=== PATIENT | female | born 1980 | race Caucasian/White ===

== ENCOUNTER 2017-05-26 10:43 | Emergency (ER) | payer MEDICAID, OTHER ==
[~2017-05-26] VITALS: Ht 157.5 cm; Wt 100.0 kg
[~2017-05-26 10:43] MED LIST: CALC600T PO; FERR240T9 PO; PERCOCET PO; PRENAT PO
[2017-05-26 10:46] VITALS: Ht 157.5 cm; Wt 100.0 kg
[2017-05-26] MEDS ORDERED: ONDANSETRON 4 MG INJ IV STA (11:25)
[2017-05-26] MEDS ORDERED: morphine 4 MG/ML VIAL IV STA (11:25)
[2017-05-26] MEDS ORDERED: KETOROLAC 30 MG INJ IV STA (11:25)
[2017-05-26] MEDS ORDERED: SOD CHLORIDE 0.9% 1,000 ML IV STA (11:25)
[2017-05-26 12:08] LABS: ADD UMIC NO; UR ASCORBIC ACID NEGATIVE (NEGATIVE); UR BACTERIA FEW /HPF (NONE SEEN); UR BILIRUBIN (Dip) NEGATIVE (NEGATIVE); UR BLOOD (Dip) NEGATIVE (NEGATIVE); UR CLARITY SLIGHTLY CLOUDY (CLEAR); UR COLOR YELLOW (YELLOW); UR GLUCOSE (Dip) NEGATIVE (NEGATIVE); UR KETONES (Dip) NEGATIVE (NEGATIVE); UR LEUKOCYTE ESTERASE (Dip) NEGATIVE Leu/ul (NEGATIVE); UR NITRITE (Dip) NEGATIVE (NEGATIVE); UR RBC 1 /HPF (0-5); UR SPECIFIC GRAVITY (Dip) 1.023 (1.003-1.030); UR SQUAMOUS EPITHELIAL CELL FEW /HPF (FEW); UR TOTAL PROTEIN (Dip) NEGATIVE (NEGATIVE); UR UROBILINOGEN (Dip) NEGATIVE (NEGATIVE)
[2017-05-26 12:14] LABS: BASOPHIL # 0.1 10^3/ul (0.0-0.1); BASOPHILS % 0.4 % (0.0-2.0); EOSINOPHILS # 0.3 10^3/ul (0.0-0.5); EOSINOPHILS % 2.1 % (0.0-7.0); HEMATOCRIT 40.2 % (37.0-47.0); HEMOGLOBIN 13.6 g/dl (12.0-16.0); LYMPHOCYTES # 2.3 10^3/ul (0.8-2.9); LYMPHOCYTES % 18.6 % (15.0-51.0); MEAN CORPUSCULAR HGB CONC 33.8 g/dl (32.0-37.0); MEAN CORPUSCULAR VOLUME 94.6 fl (82.0-101.0); MEAN PLATELET VOLUME 10.9 fl (7.4-10.4); MONOCYTE # 0.5 10^3/ul (0.3-0.9); MONOCYTES % 4.2 % (0.0-11.0); NEUTROPHIL # 9.1 10^3/ul (1.6-7.5); NEUTROPHILS % 74.3 % (39.0-77.0); PLATELET COUNT 156 10^3/UL (140-415); RED BLOOD COUNT 4.25 10^6/ul (4.20-5.40); RED CELL DISTRIBUTION WIDTH 13.5 % (11.5-14.5); WHITE BLOOD COUNT 12.3 10^3/ul (4.8-10.8)
[2017-05-26 12:31] LABS: INR 0.96; PROTIME 12.8 Sec (12.2-14.2)
[2017-05-26 12:37] LABS: ANION GAP 14 (8-16); BLOOD UREA NITROGEN 17 mg/dl (7-20); CARBON DIOXIDE 22 mmol/L (21-31); CHLORIDE 108 mmol/L (97-110); GLUCOSE 87 mg/dl (70-220); POTASSIUM 4.4 mmol/L (3.5-5.1); SODIUM 140 mmol/L (135-144)
--- NOTE | 2017-05-26 12:45 | RADRPT ---
PROCEDURE: CT Abdomen and Pelvis without contrast CLINICAL INDICATION: Abdominal pain radiating to back x2 weeks TECHNIQUE: Transaxial images were obtained through the abdomen and pelvis on a multi-slice scanner without the intravenous contrast administration. No oral contrast had previously been given. Sagit asif and coronal re-formations were subsequently reconstructed. One or more of the following dose reduction techniques were used: - Automated exposure control. - Adjustment of the mA and/or kV according to patient size. - Use of iterative reconstruction technique. Radiation dose: CTDIvol = 11.23 mGy; DLP = 633.73 mGy-cm. COMPARISON: No prior studies are available for comparison. FINDINGS: Lung bases: The visualized lung bases appear unremarkable. Liver: The liver is upper normal in size with no focal lesion identified. Gallbladder: The wall is not thickened. No radiopaque stones are identified. Bile ducts: The intra and extrahepatic bile ducts are normal in caliber. Pancreas: Appears normal with no mass or inflammation evident. Spleen: Normal in size with no focal lesion. A small accessory spleen is positioned posteriorly and even smaller accessory spleen is seen posterior to the tail of the pancreas anterior to the spleen. Adrenals: Normal with no mass identified. Kidneys, ureters and bladder: The kidneys are normal in size and there is no mass, pathological calc ification, or hydronephrosis evident. There is no perinephric stranding. The ureters are normal in c aliber and no ureteroliths are identified. The bladder appears unremarkable. Reproductive organs: The uterus is mildly retroflexed. No adnexal mass is evident. Stomach and bowel: The stomach and bowel appear unremarkable without evidence of obstruction or infl ammation. Substantial stool is seen in the right colon. At least 1 diverticulum is seen within the d istal descending colon. Appendix: A normal vermiform appendix is evident. Peritoneum: No free intraperitoneal fluid or air is identified. There is a small fat containing umbi lical hernia. Aorta: Normal in caliber with no aneurysmal dilatation. IVC: Unremarkable. Lymph nodes: A few small shotty retroperitoneal nodes are evident. Osseous structures: The osseous elements appear intact. IMPRESSION: 1. At least 1 colonic diverticulum is evident in the distal descending colon and there is substanti al stool in the right colon, but there is no evidence of bowel obstruction or inflammation. A normal vermiform appendix is evident. 2. No evidence of urinary outflow obstruction or ureterolithiasis within normal appearing bladder. 3. There is no free intraperitoneal fluid or air. 4. There is a small fat containing umbilical hernia. 5. Otherwise, unremarkable non-enhanced CT scan of the abdomen and pelvis. Physician Mariluz Date Time Electronically viewed and signed by Sandy Hylton Physician on 05/26/2017 12:45 RH/
[2017-05-26 12:50] LABS: TROPONIN-I < 0.012 ng/ml (0.00-0.12)
--- NOTE | 2017-05-26 13:01 | RADRPT ---
PROCEDURE: XR Chest AP portable CLINICAL INDICATION: Chest pain TECHNIQUE: An AP portable radiograph of the chest was submitted. COMPARISON: None. FINDINGS: Support Hardware: None Cardiovascular: The heart is normal in size. The pulmonary vasculature is equivocal for pulmonary ve nous obstruction. Lung Aden: The lung aden appear clear with no nodule, alveolar infiltrate, or interstitial promi nence evident. Pleural Spaces: No pneumothorax or pleural effusion is identified. Osseous Structures: The osseous elements appear intact.. Soft Tissues: The soft tissues appear generous. IMPRESSION: 1. Normal sized heart with the pulmonary vasculature equivocal for pulmonary venous obstruction. 2. Otherwise, unremarkable portable chest. Physician Mariluz Date Time Electronically viewed and signed by Physician Mariluz on 05/26/2017 13:01 /
[2017-05-26 13:20] LABS: PARTIAL THROMBOPLASTIN TIME 25.7 Sec (25.0-35.0)
[2017-05-26 13:41] LABS: ALANINE AMINOTRANSFERASE 28 IU/L (13-69); ALBUMIN 3.8 g/dl (3.3-4.9); ALBUMIN/GLOBULIN RATIO 1.05; ALKALINE PHOSPHATASE 53 IU/L (42-121); ASPARTATE AMINO TRANSFERASE 26 IU/L (15-46); BILIRUBIN,INDIRECT 0.2 mg/dl (0-1.1); BILIRUBIN,TOTAL 0.2 mg/dl (0.2-1.3); CALCIUM 9.3 mg/dl (8.4-10.2); CREATININE 0.74 mg/dl (0.44-1.00); TOTAL PROTEIN 7.4 g/dl (6.1-8.1)
[2017-05-26] MEDS ORDERED: HYDR-906 PO (13:47)
[2017-05-26] MEDS ORDERED: NAPR-260 PO (13:47)
[2017-05-26 14:00] VITALS: BP 134/84; PULSE 92; RESP 17; TEMP 98.1
--- NOTE | 2017-05-26 18:51 | ERD ---
ER Documentation Chief Complaint Chief Complaint AP X 2 WEEKS HPI Patient is a 37-year-old female presented to the emergency department with complaints of left lower quadrant pain worsening, constant, radiation to left upper quadrant, associated with nausea, for the past 2 weeks. The patient denies vomiting, diarrhea, fevers, vaginal discharge, pelvic pain, urinary symptoms, or other symptoms at this time. Additionally, the patient did mention some vague left sided chest pain and left arm pain. She reports her left arm is feeling heavy. ROS All systems reviewed and are negative except as per history of present illness. Medications Home Meds Active Scripts Naproxen* (Naprosyn*) 500 Mg Tablet, 500 MG PO BID Y for PAIN AND/OR INFLAMMATION, #20 TAB Prov:BRITNI LOPEZ PA-C 05/26/17 Hydrocodone/Acetaminophen ([place] 5-325 Tablet) 1 Each Tablet, 1 TAB PO Q6H Y for PAIN, #7 TAB Prov:BRITNI LOPEZ PA-C 05/26/17 Oxycodone Hcl/Acetaminophen (Percocet) 1 Tab Tab, 2 TAB PO Q4H Y for PAIN LEVEL 6-10, #30 TAB 0 Refills Prov:JENS MCRAE MD 03/25/15 Reported Medications Calcium Carbonate (Oyster Shell Calcium) 600 Mg Tablet, 600 MG PO DAILY 02/09/15 Ferrous Gluconate (Iron) 1 Tab Tablet, 1 TAB PO DAILY 02/09/15 Multivit/Min/Fol Ac/Iron/Pren* ( S*) 1 Tab Tab, 1 TAB PO DAILY, TAB 02/03/15 Allergies Allergies: Coded Allergies: No Known Allergy (Verified , 03/23/15) PMhx/Soc History of Surgery: No Anesthesia Reaction: No Hx Neurological Disorder: No Hx Respiratory Disorders: No Hx Cardiac Disorders: No Hx Psychiatric Problems: No Hx Miscellaneous Medical Probl: No Hx Alcohol Use: No Hx Substance Use: No Hx Tobacco Use: No Physical Exam Vitals Vital Signs Date Time Temp Pulse Resp B/P Pulse Ox O2 Delivery O2 Flow Rate FiO2 05/26/17 14:00 98.1 92 17 134/84 100 Room Air 05/26/17 10:46 98.1 90 18 123/78 99 Physical Exam Const: Nontoxic, well-appearing female in no acute distress. Head: Atraumatic Eyes: Normal Conjunctiva ENT: Normal External Ears, Nose and Mouth. Neck: Full range of motion..~ No meningismus. Resp: Clear to auscultation bilaterally Cardio: Regular rate and rhythm, no murmurs Abd: Soft, mild tenderness palpation of the left upper quadrant and left lower quadrant, mild rebound tenderness, no McBurney's point tenderness palpation, non distended. Normal bowel sounds Skin: No petechiae or rashes Back: No midline units. There is left flank tenderness to palpation. Ext: No cyanosis, or edema Neur: Awake and alert Psych: Normal Mood and Affect Result Diagram: 05/26/17 1200 05/26/17 1200 Results 24 hrs Laboratory Tests Test 05/26/17 11:37 05/26/17 12:00 Urine Color YELLOW Urine Clarity SLIGHTLY CLOUDY Urine pH 6.0 Urine Specific [place] 1.023 Urine Ketones NEGATIVEmg/dL Urine Nitrite NEGATIVEmg/dL Urine Bilirubin NEGATIVEmg/dL Urine Urobilinogen NEGATIVEmg/dL Urine Leukocyte Esterase NEGATIVELeu/ul Urine Microscopic RBC 1/HPF Urine Microscopic WBC 2/HPF Urine Squamous Epithelial Cells FEW/HPF Urine Bacteria FEW/HPF Urine Hemoglobin NEGATIVEmg/dL Urine Glucose NEGATIVEmg/dL Urine Total Protein NEGATIVEmg/dl White Blood Count 12.310^3/ul Red Blood Count 4.2510^6/ul Hemoglobin 13.6g/dl Hematocrit 40.2% Mean Corpuscular Volume 94.6fl Mean Corpuscular Hemoglobin 32.0pg Mean Corpuscular Hemoglobin Concent 33.8g/dl Red Cell Distribution Width 13.5% Platelet Count 41090^3/UL Mean Platelet Volume 10.9fl Neutrophils % 74.3% Lymphocytes % 18.6% Monocytes % 4.2% Eosinophils % 2.1% Basophils % 0.4% Nucleated Red Blood Cells % 0.0/100WBC Neutrophils # 9.110^3/ul Lymphocytes # 2.310^3/ul Monocytes # 0.510^3/ul Eosinophils # 0.310^3/ul Basophils # 0.110^3/ul Nucleated Red Blood Cells # 0.010^3/ul Prothrombin Time 12.8Sec Prothrombin Time Ratio 1.0 INR International Normalized Ratio 0.96 Activated Partial Thromboplast Time 25.7Sec Sodium Level 140mmol/L Potassium Level 4.4mmol/L Chloride Level 108mmol/L Carbon Dioxide Level 22mmol/L Anion Gap 14 Blood Urea Nitrogen 17mg/dl Creatinine 0.74mg/dl Glucose Level 87mg/dl Calcium Level 9.3mg/dl Total Bilirubin 0.2mg/dl Direct Bilirubin 0.00mg/dl Indirect Bilirubin 0.2mg/dl Aspartate Amino Transf (AST/SGOT) 26IU/L Alanine Aminotransferase (ALT/SGPT) 28IU/L Alkaline Phosphatase 53IU/L Troponin I < 0.012ng/ml Total Protein 7.4g/dl Albumin 3.8g/dl Globulin 3.60g/dl Albumin/Globulin Ratio 1.05 Lipase 120U/L Current Medications Medications (Trade) Dose Ordered Sig/Parrish Route PRN Reason Start Time Stop Time Status Last Admin Dose Admin Sodium Chloride (NS) 1,000 ml @ 1,000 mls/hr Q1H STAT IV 05/26/17 11:25 05/26/17 12:24 DC 05/26/17 11:56 Morphine Sulfate (morphine) 4 mg ONCE STAT IV 05/26/17 11:25 05/26/17 11:27 DC 05/26/17 11:56 Ondansetron HCl (Zofran Inj) 4 mg ONCE STAT IV 05/26/17 11:25 05/26/17 11:27 DC 05/26/17 11:56 Ketorolac Tromethamine (Toradol) 30 mg ONCE STAT IV 05/26/17 11:25 05/26/17 11:27 DC 05/26/17 11:56 Procedures/MDM 37-year-old female presents to the emergency department with complaints of left upper quadrant pain, left lower quadrant pain, left flank pain, chest pain, and left arm pain. Physical examination does show some left lower quadrant and left upper quadrant tenderness to palpation. She was placed on a stretcher in IV line established. She was given IV morphine, Zofran, Toradol, fluids. She is feeling improved on reevaluation. Upon review of laboratory results, the patient had mild leukocytosis at 12.3, no evidence of anemia. Chemistry panel was within normal limits. Troponin was within normal limits. Urinalysis is not concerning for infection or proteinuria. Abdomen and pelvis CT without contrast showed 1 colonic diverticulum in the distal descending colon but no evidence of bowel obstruction or inflammation. A normal vermiform appendix is evident. Chest x-ray was obtained because the patient was complaining of chest pain. There is a normal-sized heart with the pulmonary vasculature equivocal for pulmonary venous obstruction, otherwise unremarkable portable chest. This may be followed up by her primary care physician and referral to specialist if indicated. Attending physician, Dr. Franck Ragsdale also reviewed the chest x- ray and was in agreement that there is no significant acute abnormalities. After workup in the department there was no significant finding which would explain the patient's left upper and left lower quadrant pain. She was feeling better after treatment. She was stable for discharge with prescriptions. She agreed with the discharge plan a diagnosis. I shared my medical decision making with the patient and she was in agreement. She is to return immediately for any new or worsening symptoms she is to follow-up with her primary care physician in the next 1-2 days. EKG: Reviewed with attending physician, Dr. Kelly Roldan Rate/Rhythm: Normal sinus rhythm with a rate of 95 bpm. QRS, ST, T-waves: No changes consistent w/ acute ischemia Impression: No evidence of ischemia or arrhythmia PROCEDURE: CT Abdomen and Pelvis without contrast CLINICAL INDICATION: Abdominal pain radiating to back x2 weeks TECHNIQUE: Transaxial images were obtained through the abdomen and pelvis on a multi-slice scanner without the intravenous contrast administration. No oral contrast had previously been given. Sagittal and coronal re-formations were subsequently reconstructed. One or more of the following dose reduction techniques were used: - Automated exposure control. - Adjustment of the mA and/or kV according to patient size. - Use of iterative reconstruction technique. Radiation dose: CTDIvol = 11.23 mGy; DLP = 633.73 mGy-cm. COMPARISON: No prior studies are available for comparison. FINDINGS: Lung bases: The visualized lung bases appear unremarkable. Liver: The liver is upper normal in size with no focal lesion identified. Gallbladder: The wall is not thickened. No radiopaque stones are identified. Bile ducts: The intra and extrahepatic bile ducts are normal in caliber. Pancreas: Appears normal with no mass or inflammation evident. Spleen: Normal in size with no focal lesion. A small accessory spleen is positioned posteriorly and even smaller accessory spleen is seen posterior to the tail of the pancreas anterior to the spleen. Adrenals: Normal with no mass identified. Kidneys, ureters and bladder: The kidneys are normal in size and there is no mass, pathological calcification, or hydronephrosis evident. There is no perinephric stranding. The ureters are normal in caliber and no ureteroliths are identified. The bladder appears unremarkable. Reproductive organs: The uterus is mildly retroflexed. No adnexal mass is evident. Stomach and bowel: The stomach and bowel appear unremarkable without evidence of obstruction or inflammation. Substantial stool is seen in the right colon. At least 1 diverticulum is seen within the distal descending colon. Appendix: A normal vermiform appendix is evident. Peritoneum: No free intraperitoneal fluid or air is identified. There is a small fat containing umbilical hernia. Aorta: Normal in caliber with no aneurysmal dilatation. IVC: Unremarkable. Lymph nodes: A few small shotty retroperitoneal nodes are evident. Osseous structures: The osseous elements appear intact. IMPRESSION: 1. At least 1 colonic diverticulum is evident in the distal descending colon and there is substantial stool in the right colon, but there is no evidence of bowel obstruction or inflammation. A normal vermiform appendix is evident. 2. No evidence of urinary outflow obstruction or ureterolithiasis within normal appearing bladder. 3. There is no free intraperitoneal fluid or air. 4. There is a small fat containing umbilical hernia. 5. Otherwise, unremarkable non-enhanced CT scan of the abdomen and pelvis. Physician Mariluz Date Time Electronically viewed and signed by Physician Mariluz on 05/26/2017 12:45 PROCEDURE: XR Chest AP portable CLINICAL INDICATION: Chest pain TECHNIQUE: An AP portable radiograph of the chest was submitted. COMPARISON: None. FINDINGS: Support Hardware: None Cardiovascular: The heart is normal in size. The pulmonary vasculature is equivocal for pulmonary venous obstruction. Lung Curtis: The lung curtis appear clear with no nodule, alveolar infiltrate, or interstitial prominence evident. Pleural Spaces: No pneumothorax or pleural effusion is identified. Osseous Structures: The osseous elements appear intact.. Soft Tissues: The soft tissues appear generous. IMPRESSION: 1. Normal sized heart with the pulmonary vasculature equivocal for pulmonary venous obstruction. 2. Otherwise, unremarkable portable chest. Physician Mariluz Date Time Electronically viewed and signed by Physician Mariluz on 05/26/2017 13:01 Departure Diagnosis: Primary Impression: Abdominal pain Abdominal location: generalized Qualified Code: R10.84 - Generalized abdominal pain Condition: Fair Patient Instructions: Abdominal Pain Referrals: MIREYA LAZARO MD (PCP) Additional Instructions: Follow up with your PCP within the next 1-3 days for a repeat evaluation. If you require a referral to a specialist, your Primary Care Provider may be able to provide this for you. In most patient cases, a referral is not required. If you have further questions regarding this matter, please ask your Primary Care Provider. Return the the emergency department immediately if symptoms worsen or change. If you have any questions regarding medications, ask your pharmacist or us before you leave. If any adverse reactions, occur while taking your medications, discontinue the treatment and return to the emergency department immediately. If any new or worsening symptoms, uncontrolled fevers, or other unexplained symptoms occur, return to the emergency department immediately. Take your medications as directed, and complete the entire course of treatment. BRITNI LOPEZ PA-C May 26, 2017 18:50
== END 2017-05-26 14:02 | disposition home or self-care (01) ==
LOC: FTE 10:43
DX: R10.84 Generalized abdominal pain (principal)
CPT/HCPCS: 36415; 71010; 74176; 80053; 81001; 83690; 84484; 85025; 85610; 85730; 93005; 96374; 96375; J1885; J2270; J2405; J7030; Z7502; 81003

== ENCOUNTER 2017-05-30 15:04 | Emergency (ER) | payer MEDICAID ==
[~2017-05-30] VITALS: Ht 149.9 cm; Wt 72.0 kg
[~2017-05-30 15:04] MED LIST changes: +HYDR-906 PO; +NAPR-260 PO
[2017-05-30 15:09] VITALS: Ht 149.9 cm; Wt 72.0 kg
--- NOTE | 2017-05-30 16:54 | ERD ---
ER Documentation Chief Complaint Chief Complaint abdominal pain x 5 days, sent by pmd r/o appendicitis HPI this 37 year old femal is returning to ED for evaluation of ABD, generalized ABD pain described as shooting sharp and crampy, abd mcfp, pt reports SOB , pt denies N/V D + constipation . seen here 4 days ago for the same complaint. pt was seen [facility] , MD refered her to ED for evaluation ROS All systems reviewed and are negative except as per history of present illness. Medications Home Meds Active Scripts Naproxen* (Naprosyn*) 500 Mg Tablet, 500 MG PO BID Y for PAIN AND/OR INFLAMMATION, #20 TAB Prov:BRITNI LOPEZ PA-C 05/26/17 Hydrocodone/Acetaminophen (Rye 5-325 Tablet) 1 Each Tablet, 1 TAB PO Q6H Y for PAIN, #7 TAB Prov:BRITNI LOPEZ PA-C 05/26/17 Oxycodone Hcl/Acetaminophen (Percocet) 1 Tab Tab, 2 TAB PO Q4H Y for PAIN LEVEL 6-10, #30 TAB 0 Refills Prov:JENS MCRAE MD 03/25/15 Reported Medications Calcium Carbonate (Oyster Shell Calcium) 600 Mg Tablet, 600 MG PO DAILY 02/09/15 Ferrous Gluconate (Iron) 1 Tab Tablet, 1 TAB PO DAILY 02/09/15 Multivit/Min/Fol Ac/Iron/Pren* ( S*) 1 Tab Tab, 1 TAB PO DAILY, TAB 02/03/15 Allergies Allergies: Coded Allergies: No Known Allergy (Verified , 03/23/15) PMhx/Soc History of Surgery: No Anesthesia Reaction: No Hx Neurological Disorder: No Hx Respiratory Disorders: No Hx Cardiac Disorders: No Hx Psychiatric Problems: No Hx Miscellaneous Medical Probl: No Hx Alcohol Use: No Hx Substance Use: No Hx Tobacco Use: No Physical Exam Vitals Vital Signs Date Time Temp Pulse Resp B/P Pulse Ox O2 Delivery O2 Flow Rate FiO2 05/30/17 15:09 98.7 100 18 155/84 99 Physical Exam Const: [] Head: Atraumatic Eyes: Normal Conjunctiva ENT: Normal External Ears, Nose and Mouth. Neck: Full range of motion..~ No meningismus. Resp: Clear to auscultation bilaterally Cardio: Regular rate and rhythm, no murmurs Abd: Soft, non tender, non distended. Normal bowel sounds Skin: No petechiae or rashes Back: No midline or flank tenderness Ext: No cyanosis, or edema Neur: Awake and alert Psych: Normal Mood and Affect Result Diagram: 05/30/17 1735 05/30/17 1735 Results 24 hrs Laboratory Tests Test 05/30/17 17:10 05/30/17 17:35 Urine Color YELLOW Urine Clarity SLIGHTLY CLOUDY Urine pH 5.0 Urine Specific Bernie 1.029 Urine Ketones TRACEmg/dL Urine Nitrite POSITIVEmg/dL Urine Bilirubin NEGATIVEmg/dL Urine Urobilinogen NEGATIVEmg/dL Urine Leukocyte Esterase NEGATIVELeu/ul Urine Microscopic RBC 1/HPF Urine Microscopic WBC 5/HPF Urine Squamous Epithelial Cells FEW/HPF Urine Bacteria FEW/HPF Urine Mucus FEW/HPF Urine Hemoglobin NEGATIVEmg/dL Urine Glucose NEGATIVEmg/dL Urine Total Protein NEGATIVEmg/dl White Blood Count 11.910^3/ul Red Blood Count 4.3010^6/ul Hemoglobin 13.7g/dl Hematocrit 40.0% Mean Corpuscular Volume 93.0fl Mean Corpuscular Hemoglobin 31.9pg Mean Corpuscular Hemoglobin Concent 34.3g/dl Red Cell Distribution Width 13.1% Platelet Count 09640^3/UL Mean Platelet Volume 11.6fl Neutrophils % 67.6% Lymphocytes % 23.9% Monocytes % 5.4% Eosinophils % 2.5% Basophils % 0.3% Nucleated Red Blood Cells % 0.0/100WBC Neutrophils # 8.110^3/ul Lymphocytes # 2.810^3/ul Monocytes # 0.610^3/ul Eosinophils # 0.310^3/ul Basophils # 0.010^3/ul Nucleated Red Blood Cells # 0.010^3/ul Sodium Level 142mmol/L Potassium Level 4.1mmol/L Chloride Level 104mmol/L Carbon Dioxide Level 26mmol/L Anion Gap 16 Blood Urea Nitrogen 20mg/dl Creatinine 0.85mg/dl Glucose Level 64mg/dl Calcium Level 9.6mg/dl Total Bilirubin 0.2mg/dl Direct Bilirubin 0.00mg/dl Indirect Bilirubin 0.2mg/dl Aspartate Amino Transf (AST/SGOT) 18IU/L Alanine Aminotransferase (ALT/SGPT) 24IU/L Alkaline Phosphatase 60IU/L Total Protein 7.8g/dl Albumin 4.7g/dl Globulin 3.10g/dl Albumin/Globulin Ratio 1.51 Lipase 88U/L Current Medications Medications (Trade) Dose Ordered Sig/Parrish Route PRN Reason Start Time Stop Time Status Last Admin Dose Admin Sodium Chloride (NS) 1,000 ml @ 1,000 mls/hr Q1H STAT IV 05/30/17 16:59 05/30/17 17:58 DC 05/30/17 17:36 Famotidine (Pepcid Iv) 20 mg ONCE STAT IV 05/30/17 16:59 05/30/17 17:02 DC 05/30/17 17:36 Ketorolac Tromethamine (Toradol) 15 mg ONCE STAT IV 05/30/17 16:59 05/30/17 17:02 DC 05/30/17 17:36 Acetaminophen/ Hydrocodone Bitart (Rye (5/325)) 1 tab ONCE ONCE PO 05/30/17 19:30 05/30/17 19:31 DC 05/30/17 19:12 Interpretation text CBC shows no evidence of hemorrhage WBCs slightly elevated at 11.9 Chemistry shows no evidence of significant electrolyte abnormalities or renal insufficiency Liver function tests shows no evidence of acute biliary or hepatic dysfunction Lipase shows no evidence of acute pancreatitis BNP shows no evidence of acute congestive heart failure, and or volume overload. Urinalysis positive for nitrates suggestive of infection Chart review PROCEDURE: CT Abdomen and Pelvis without contrast from 05/26/17 CLINICAL INDICATION: Abdominal pain radiating to back x2 weeks TECHNIQUE: Transaxial images were obtained through the abdomen and pelvis on a multi-slice scanner without the intravenous contrast administration. No oral contrast had previously been given. Sagittal and coronal re-formations were subsequently reconstructed. One or more of the following dose reduction techniques were used: - Automated exposure control. - Adjustment of the mA and/or kV according to patient size. - Use of iterative reconstruction technique. Radiation dose: CTDIvol = 11.23 mGy; DLP = 633.73 mGy-cm. COMPARISON: No prior studies are available for comparison. FINDINGS: Lung bases: The visualized lung bases appear unremarkable. Liver: The liver is upper normal in size with no focal lesion identified. Gallbladder: The wall is not thickened. No radiopaque stones are identified. Bile ducts: The intra and extrahepatic bile ducts are normal in caliber. Pancreas: Appears normal with no mass or inflammation evident. Spleen: Normal in size with no focal lesion. A small accessory spleen is positioned posteriorly and even smaller accessory spleen is seen posterior to the tail of the pancreas anterior to the spleen. Adrenals: Normal with no mass identified. Kidneys, ureters and bladder: The kidneys are normal in size and there is no mass, pathological calcification, or hydronephrosis evident. There is no perinephric stranding. The ureters are normal in caliber and no ureteroliths are identified. The bladder appears unremarkable. Reproductive organs: The uterus is mildly retroflexed. No adnexal mass is evident. Stomach and bowel: The stomach and bowel appear unremarkable without evidence of obstruction or inflammation. Substantial stool is seen in the right colon. At least 1 diverticulum is seen within the distal descending colon. Appendix: A normal vermiform appendix is evident. Peritoneum: No free intraperitoneal fluid or air is identified. There is a small fat containing umbilical hernia. Aorta: Normal in caliber with no aneurysmal dilatation. IVC: Unremarkable. Lymph nodes: A few small shotty retroperitoneal nodes are evident. Osseous structures: The osseous elements appear intact. IMPRESSION: 1. At least 1 colonic diverticulum is evident in the distal descending colon and there is substantial stool in the right colon, but there is no evidence of bowel obstruction or inflammation. A normal vermiform appendix is evident. 2. No evidence of urinary outflow obstruction or ureterolithiasis within normal appearing bladder. 3. There is no free intraperitoneal fluid or air. 4. There is a small fat containing umbilical hernia. 5. Otherwise, unremarkable non-enhanced CT scan of the abdomen and pelvis. Procedures/MDM PROCEDURE: US Pelvis. CLINICAL INDICATION: Pelvic pain TECHNIQUE: Multiple sonographic images of the pelvis were obtained utilizing a transabdominal and endovaginal technique. The images were reviewed on a PACS workstation. COMPARISON: None available FINDINGS: Uterus: Normal in size, contour and echogenicity with no evidence for myometrial masses. Size is estimated at 10.3 x 5.6 x 4.8 cm. Cervix: No abnormalities of significance are seen. Endometrium: Normal in thickness for the patient's age; 12.2 mm. Right ovary / adnexa: Normal in size estimated at 2.9 x 2.6 x 1.9 cm. No evidence for masses, normal blood flow on Doppler interrogation. Simple ovarian cyst measures 1.8 x 1.6 x 1.5 cm. There is no evidence of free fluid in the adnexa. Left ovary/adnexa: Normal in size estimated at 2.7 x 2.7 x 1.5 cm. No evidence for solid masses, normal blood flow on Doppler interrogation. Cul-de-sac: No evidence of free fluid. RPTAT:HJJR IMPRESSION: 1. Simple right ovarian cyst of 1.8 cm without evidence of free fluid. 2. Otherwise unremarkable pelvic ultrasound. Physician Kleber Date Time Electronically viewed and signed by Physician Kleber on 05/30/2017 18:48 This 37-year-old female presents to emergency department for reevaluation of abdominal pain, patient was seen and had a full evaluation here 4 days ago, was discharged home instructed to follow-up with primary care physician. Patient followed up with primary care physician who has referred her back to emergency department for an acute abdomen. Patient reports now she has abdominal distention, dysuria, intermittent nausea, denies diarrhea, chills, or back pain. Two-room course includes repeat laboratory testing, a non-OB ultrasound, and pain medication, IV Toradol, and a liter of normal saline. Serology shows elevated WBCs at 11.9. No hemorrhage, no electrolyte dysfunction, hepatitis, cholecystitis, urinalysis positive for nitrates suggestive of infection, ultrasound documents a simple right ovarian cyst of 1.8 cm without evidence of fluid. Patient will be discharged home with Missael Rye 5/325 count is 7, Naprosyn 500 mg 1 tab p.o. twice daily 10 days, follow-up with [facility] for cyst treatment, return to emergency department if his abdomen fails to improve as anticipated. Patient is stable with no new complaints during ER course, clinically there is no current evidence to suggest meningitis, sepsis, acute abdomen, acute coronary syndromes, pulmonary embolism or any other emergent condition appearing to require further evaluation or hospitalization. I feel the patient is stable for discharge at this time. I have discussed results, examination findings, the treatment plan with the patient and family present prior to discharge. Indications for emergent reevaluation, side effects of medication were also discussed. All questions were answered. Patient verbalizes understanding and agrees with plan of care. Departure Diagnosis: Primary Impression: UTI (urinary tract infection) Urinary tract infection type: acute cystitis Hematuria presence: without hematuria Qualified Code: N30.00 - Acute cystitis without hematuria Additional Impression: Ovarian cyst Laterality: right Qualified Code: N83.201 - Cyst of right ovary Condition: Good Patient Instructions: Ovarian Cyst, Understanding Urinary Tract Infections ( UTIs) Referrals: [facility] REFERRAL LIST Additional Instructions: Thank you for for coming to [facility] for your care today. Please ask your nurse or provider if you have questions about your care today and do not leave until all your questions have been answered. Please use any medications given as directed and follow-up with your doctor (or the doctor you were referred to) in the next 2-3 days. If you do not have a primary care doctor you may follow up at the [facility] (listed below). You may also use motrin and tylenol as needed for fever and/or pain unless instructed otherwise by your provider or nurse. Indications for more urgent follow-up have been discussed, but you may return to the Emergency Department at ANY time for any worrisome or worsening symptoms. If you have abdominal pain, please know that no test or exam you received is perfect and you should follow up within 8 hours for continued pain. If you had any imaging studies today, such as an X-Ray or CT Scan, these studies will be reviewed later by a radiologist. You will be called if there are important findings that were not identified today, so make sure the contact information you provided at registration is correct. If you received any narcotic pain control medicine today, such as Vicodin, Morphine or Dilaudid, your coordination and judgment may be affected for a number of hours. Please do not drive or operate heavy machinery, and you may want someone to assist you at home. If you were given a prescription for narcotic medication, be aware that it is very addictive- use sparingly and only if necessary. JULISA BOWDEN May 30, 2017 16:54
[2017-05-30] MEDS ORDERED: KETOROLAC 15 MG INJ IV STA (16:59)
[2017-05-30] MEDS ORDERED: FAMOTIDINE 20 MG INJ IV STA (16:59)
[2017-05-30] MEDS ORDERED: SOD CHLORIDE 0.9% 1,000 ML IV STA (16:59)
[2017-05-30 17:42] LABS: ADD UMIC YES; UR ASCORBIC ACID NEGATIVE (NEGATIVE); UR BACTERIA FEW /HPF (NONE SEEN); UR BILIRUBIN (Dip) NEGATIVE (NEGATIVE); UR BLOOD (Dip) NEGATIVE (NEGATIVE); UR CLARITY SLIGHTLY CLOUDY (CLEAR); UR COLOR YELLOW (YELLOW); UR GLUCOSE (Dip) NEGATIVE (NEGATIVE); UR KETONES (Dip) TRACE mg/dL (NEGATIVE); UR LEUKOCYTE ESTERASE (Dip) NEGATIVE Leu/ul (NEGATIVE); UR MUCUS FEW /HPF (NONE SEEN); UR NITRITE (Dip) POSITIVE (NEGATIVE); UR RBC 1 /HPF (0-5); UR SPECIFIC GRAVITY (Dip) 1.029 (1.003-1.030); UR SQUAMOUS EPITHELIAL CELL FEW /HPF (FEW); UR TOTAL PROTEIN (Dip) NEGATIVE (NEGATIVE); UR UROBILINOGEN (Dip) NEGATIVE (NEGATIVE)
[2017-05-30 17:47] LABS: BASOPHILS % 0.3 % (0.0-2.0); EOSINOPHILS # 0.3 10^3/ul (0.0-0.5); EOSINOPHILS % 2.5 % (0.0-7.0); HEMOGLOBIN 13.7 g/dl (12.0-16.0); LYMPHOCYTES # 2.8 10^3/ul (0.8-2.9); LYMPHOCYTES % 23.9 % (15.0-51.0); MEAN CORPUSCULAR HEMOGLOBIN 31.9 pg (29.0-33.0); MEAN CORPUSCULAR HGB CONC 34.3 g/dl (32.0-37.0); MEAN PLATELET VOLUME 11.6 fl (7.4-10.4); MONOCYTE # 0.6 10^3/ul (0.3-0.9); MONOCYTES % 5.4 % (0.0-11.0); NEUTROPHIL # 8.1 10^3/ul (1.6-7.5); NEUTROPHILS % 67.6 % (39.0-77.0); PLATELET COUNT 175 10^3/UL (140-415); RED CELL DISTRIBUTION WIDTH 13.1 % (11.5-14.5); WHITE BLOOD COUNT 11.9 10^3/ul (4.8-10.8)
[2017-05-30 18:09] LABS: ALBUMIN 4.7 g/dl (3.3-4.9); ALBUMIN/GLOBULIN RATIO 1.51; BILIRUBIN,INDIRECT 0.2 mg/dl (0-1.1); BILIRUBIN,TOTAL 0.2 mg/dl (0.2-1.3); CALCIUM 9.6 mg/dl (8.4-10.2); CREATININE 0.85 mg/dl (0.44-1.00); POTASSIUM 4.1 mmol/L (3.5-5.1); TOTAL PROTEIN 7.8 g/dl (6.1-8.1)
--- NOTE | 2017-05-30 18:48 | RADRPT ---
PROCEDURE: US Pelvis. CLINICAL INDICATION: Pelvic pain TECHNIQUE: Multiple sonographic images of the pelvis were obtained utilizing a transabdominal and endovaginal technique. The images were reviewed on a PACS workstation. COMPARISON: None available FINDINGS: Uterus: Normal in size, contour and echogenicity with no evidence for myometrial masses. Size is est imated at 10.3 x 5.6 x 4.8 cm. Cervix: No abnormalities of significance are seen. Endometrium: Normal in thickness for the patient's age; 12.2 mm. Right ovary / adnexa: Normal in size estimated at 2.9 x 2.6 x 1.9 cm. No evidence for masses, norm al blood flow on Doppler interrogation. Simple ovarian cyst measures 1.8 x 1.6 x 1.5 cm. There is no evidence of free fluid in the adnexa. Left ovary/adnexa: Normal in size estimated at 2.7 x 2.7 x 1.5 cm. No evidence for solid masses, no rmal blood flow on Doppler interrogation. Cul-de-sac: No evidence of free fluid. RPTAT:HJJR IMPRESSION: 1. Simple right ovarian cyst of 1.8 cm without evidence of free fluid. 2. Otherwise unremarkable pelvic ultrasound. Physician Kleber Date Time Electronically viewed and signed by Physician Kleber on 05/30/2017 18:48 /
[2017-05-30] MEDS ORDERED: HYDROCODONE/APAP (5/325) TAB PO ONE (19:30)
[2017-05-30] MEDS ORDERED: NITR-58 PO (20:01)
[2017-05-30] MEDS ORDERED: NAPR-260 PO (20:02)
[2017-05-30] MEDS ORDERED: HYDR-906 PO (20:02)
[2017-05-30 20:12] VITALS: BP 134/86; PULSE 78; RESP 18; TEMP 98.3
== END 2017-05-30 20:14 | disposition home or self-care (01) ==
LOC: FTE 15:04
DX: N30.00 Acute cystitis without hematuria (principal); N83.201 Unspecified ovarian cyst, right side; R10.2 Pelvic and perineal pain
CPT/HCPCS: 76830; 76856; 80053; 81001; 83690; 85025; 96374; 96375; J1885; J7030; Z7502; Z7610